=== PATIENT | female | born 1950 | race Caucasian/White ===

== ENCOUNTER → 2017-12-15 | Outpatient (CLI) | payer MEDICARE, OTHER ==
[2017-12-15 09:52] LABS: ABG HCO3 25 mmol/L (23-28); ABG PCO2 38 mmHg (41-51); ABG PH 7.43 (7.31-7.41); ABG PO2 58 mmHg (80-105)
--- NOTE | 2017-12-16 09:09 | Pulmonary Function Test ---
DATE OF STUDY: Patient of Dr. Lion, Dr. Kemp and Dr. Barkley. Restrictive spirometry: Forced vital capacity is 2.06 L, 67% of predicted. FEV1 1.48 L, 63%. FEV1/ FVC ratio 72%. FEF 25-75 48%. There is no significant improvement following inhalation of bronchodilators. Diffusion capacity is reduced to 10.9, 45% of predicted. Lung volumes are preserved. Total capacity 4.77 L, 93% of predicted. Combination of findings suggests moderately severe obstructive pulmonary disease involving small airways. Arterial blood gas with pH 7.43, pCO2 38, pAO2 58, AA-gradient 46. After walking 100 feet, the patient's O2 saturation fell to 87%. Patient does represent an increased risk for thoracic surgery. Split function study might be considered prior to intervention. Job#: [id number] FÉLIX
== END ==
LOC: RESP 07:56
PROVIDERS: ATTEND Internal Medicine
DX: J44.9 Chronic obstructive pulmonary disease, unspecified (principal); F17.200 Nicotine dependence, unspecified, uncomplicated
CPT/HCPCS: 36415; 82805